=== PATIENT | male | born 1955 | race Caucasian/White ===

== ENCOUNTER 2019-02-06 08:18 | Emergency (ER) | payer MEDICAID, OTHER ==
[~2019-02-06] VITALS: Ht 172.7 cm; Wt 96.0 kg
[2019-02-06 08:24] VITALS: Ht 172.7 cm; Wt 96.0 kg
[2019-02-06] MEDS ORDERED: LIDOCAINE 1%/EPI (1:100,000) (MDV) 20 ML INJ ONE (09:00)
[2019-02-06] MEDS ORDERED: HYDROCODONE/APAP (10/325) TAB PO ONE (09:00)
[2019-02-06] MEDS ORDERED: ONDANSETRON (ODT) 4 MG TAB ODT ONE (09:00)
[2019-02-06] MEDS ORDERED: DIPHTH/TET/ACEL PERTUSS (ADULT) 0.5 ML VIAL IM* ONE (09:00)
[2019-02-06] MEDS ORDERED: LIDOCAINE 1% (MDV) 20 ML INJ INJ ONE (09:00)
[2019-02-06] MEDS ORDERED: LIDOCAINE 1%/EPI 30 ML INJ INJ ONE (09:30)
[2019-02-06] MEDS ORDERED: IBUP800T48 PO (11:35)
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
[2019-02-06 12:10] VITALS: BP 136/72; PULSE 88; RESP 20
== END 2019-02-06 12:10 | disposition home or self-care (01) ==
LOC: E/R 08:18
DX: S01.511A Laceration without foreign body of lip, initial encounter (principal); S01.112A Laceration without foreign body of left eyelid and periocular area, initial encounter; S01.81XA Laceration without foreign body of other part of head, initial encounter; F17.210 Nicotine dependence, cigarettes, uncomplicated; Y04.2XXA Assault by strike against or bumped into by another person, initial encounter; Z23 Encounter for immunization
CPT/HCPCS: 12015; 70450; 70486; 90471; 90715; Z7502; Z7610

== ENCOUNTER 2019-02-11 10:05 | Emergency (ER) | payer MEDICAID ==
[~2019-02-11] VITALS: Ht 172.7 cm; Wt 93.4 kg
[~2019-02-11 10:05] MED LIST: IBUP800T48 PO
[2019-02-11 10:08] VITALS: BP 192/88; PULSE 76; RESP 18; Ht 172.7 cm; Wt 93.4 kg
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
== END 2019-02-11 11:02 | disposition home or self-care (01) ==
LOC: FTE 10:05
DX: Z48.02 Encounter for removal of sutures (principal); F17.210 Nicotine dependence, cigarettes, uncomplicated
CPT/HCPCS: 99281